=== PATIENT | male | born 1965 | race Caucasian/White ===

== ENCOUNTER → 2017-05-02 | Outpatient (CLI) | payer BC ==
[~2017-05-02] MED LIST: ACCUPRIL20TAB PO; ALEVE 220MG220 MG PO; ASPIRIN 32325 MG/TAB PO; ASPIRIN E.C. 8181 MG PO; BRILINTA90 MG PO; EPA FISH OIL1 SGL PO; LIPITOR 40MG TA40 MG PO; MUCINEX1200 MG PO; MULTI VITAMINS1 TAB PO; NITROSTAT0.4 MG/TAB SL; NORCO 325 MG-51 TAB PO; PROTONIX20 MG PO; TOPROL XL 50MG50 MG PO; TYLENOL 8 HR PO; VTAMINC250TA PO
== END ==
LOC: COL.CARD 07:04
DX: R07.9 Chest pain, unspecified (principal)

== ENCOUNTER → 2017-05-09 | Outpatient (CLI) | payer BC ==
[2017-05-09 05:59] VITALS: BP 137/91; PULSE 63
== END ==
LOC: COL.CARD 05:39
DX: I10 Essential (primary) hypertension (principal); R94.39 Abnormal result of other cardiovascular function study; R07.89 Other chest pain
CPT/HCPCS: A9502

== ENCOUNTER 2017-05-16 04:10 | Inpatient (IN) | payer BC ==
[~2017-05-16] VITALS: Ht 182.9 cm; Wt 97.5 kg
[2017-05-16] VITALS (675 sets, daily range): BP systolic 115–132; BP diastolic 68–94; PULSE 54–66; TEMP 9.2; O2SAT 84–100
[~2017-05-16 04:10] MED LIST changes: -ASPIRIN 32325 MG/TAB PO; -ASPIRIN E.C. 8181 MG PO; -BRILINTA90 MG PO; -EPA FISH OIL1 SGL PO; -LIPITOR 40MG TA40 MG PO; -NITROSTAT0.4 MG/TAB SL; -TOPROL XL 50MG50 MG PO
[2017-05-16 04:33] LABS: BASO # 0.1 (0.0-0.2); BASO % 0.7 % (0.0-2.0); EOS # 0.2 (0.0-0.7); EOS % 1.9 % (0-4.0); GRAN # 4.2 (1.4-6.5); GRAN % 52.1 % (42.2-75.2); HEMATOCRIT 43.7 % (42.0-52.0); HEMOGLOBIN 15.2 g/dl (13.5-18.0); LYMPH # 3.2 (1.2-3.4); LYMPH % 39.2 % (20.0-51.0); MEAN CELL VOLUME 89 fl (80.0-100.0); MEAN CORPUSCULAR HEMOGLOBIN 31 pg (27.0-31.0); MEAN CORPUSCULAR HGB CONC 35 g/dl (33.0-37.0); MEAN PLATELET VOLUME 10.1 fl (7.4-10.4); MONO # 0.5 (0.1-0.6); MONO % 5.7 % (1.7-9.3); PLATELET COUNT 223 K/mm3 (130-400); RED BLOOD COUNT 4.94 M/mm3 (4.20-5.60); REDCELL DISTRIBUTION WIDTH-CV 13.1 % (11.5-14.5)
[2017-05-16 04:35] LABS: PROTHROMBIN TIME 10.7 SECONDS (9.7-12.8)
[2017-05-16 04:38] LABS: PARTIAL THROMBOPLASTIN TIME 31.5 SECONDS (26.0-37.0)
[2017-05-16 04:40] LABS: ALANINE AMINOTRANSFERASE 48 U/L (21-72); ALBUMIN 4.2 gm/dL (3.5-5.0); ALKALINE PHOSPHATASE 67 U/L (50-136); ANION GAP 12 mmol/L (7-16); AST,SGOT 24 U/L (15-37); BILIRUBIN,TOTAL 0.6 mg/dL (0.0-1.0); BLOOD UREA NITROGEN 12 mg/dL (9-20); CARBON DIOXIDE 22 mmol/L (22-30); CHLORIDE 105 mmol/L (98-107); CREATININE, serum 0.63 mg/dL (0.66-1.25); GLUCOSE 138 mg/dL (74-106); LIPASE 52 U/L (23-300); POTASSIUM 3.7 mmol/L (3.4-5.0); SODIUM 139 mmol/L (137-145)
[2017-05-16 04:52] LABS: TROPONIN-I < 0.012 ng/mL (0.000-0.034)
[2017-05-16] MEDS ORDERED: ASPIRIN 32325 MG/TAB PO (06:30)
[2017-05-16] MEDS ORDERED: NITROSTAT0.4 MG/TAB SL (06:31)
--- NOTE | 2017-05-16 19:21 | NUR ---
Shift report given ELAINE Johnson.
--- NOTE | 2017-05-16 20:00 | NUR ---
Assessment completed pt is alert and oriented pts at bedside. Pt c/o headache and intermittent chest discomfort in middle of chest like indigestion. Pt recently received [place] for pain. Pt on Nitro drip at 20mcg or 12cc/hr. this has been increased from 10mcg per Dr. order. Pt has a right groin angioseal with gauze dressing CD&I. Pt has good capillary pedal pulse to right foot. Call light within reach encouraged pt to use for any needs. Continue to monitor closely.
--- NOTE | 2017-05-16 20:45 | NUR ---
Pt ambulated on telemetry in ICU and around IMCU with his and son. Pt tolerated well. No c/o pain at this time. Pt remains with IV Nitro and 1/2 NS at this time. and Son given contact # to ICU and this nurse received contact #. Family went home after pt back to bed for the evening. Talked to pt and family about family hx and POC also about Cardiac cath and chest pain.
[2017-05-17] VITALS (403 sets, daily range): BP systolic 109–131; BP diastolic 66–78; PULSE 63–74; TEMP 97.2–98.7; O2SAT 92–98
[2017-05-17 05:08] LABS: BASO % 0.4 % (0.0-2.0); EOS # 0.1 (0.0-0.7); EOS % 0.8 % (0-4.0); GRAN # 5.8 (1.4-6.5); GRAN % 68.5 % (42.2-75.2); HEMATOCRIT 40.2 % (42.0-52.0); HEMOGLOBIN 13.5 g/dl (13.5-18.0); LYMPH % 23.7 % (20.0-51.0); MEAN CELL VOLUME 89 fl (80.0-100.0); MEAN CORPUSCULAR HEMOGLOBIN 30 pg (27.0-31.0); MEAN CORPUSCULAR HGB CONC 34 g/dl (33.0-37.0); MEAN PLATELET VOLUME 10.2 fl (7.4-10.4); MONO # 0.5 (0.1-0.6); MONO % 6.4 % (1.7-9.3); PLATELET COUNT 177 K/mm3 (130-400); REDCELL DISTRIBUTION WIDTH-CV 13.2 % (11.5-14.5)
[2017-05-17 05:27] LABS: CALCIUM 8.8 mg/dL (8.4-10.2); CREATININE, serum 0.63 mg/dL (0.66-1.25)
[2017-05-17 05:40] LABS: TROPONIN-I 0.039 ng/mL (0.000-0.034)
--- NOTE | 2017-05-17 07:15 | NUR ---
Report received from ELAINE Johnson.
--- NOTE | 2017-05-17 08:10 | NUR ---
Patient ambulating in the hallway with .
--- NOTE | 2017-05-17 12:07 | NUR ---
First visit from the hospice case manager. No spiritual needs right now.
--- NOTE | 2017-05-17 13:45 | NUR ---
Patient transferred to [facility] via wheelchair, with all belongings, at side.
--- NOTE | 2017-05-17 14:20 | NUR ---
Pt arrived to floor via WC from ICU to room 353. Assessment completed. Pt states that he has "intermittent chest pain but overall feels better". INT to bilateral hands are patent and free of s/s of infection. Incision to right groin is soft and non-tender, dressing CDI. Pt at bedside. Pt denies any other needs at this time. Call light within reach. Will continue to monitor.
--- NOTE | 2017-05-17 19:37 | NUR ---
Pt c/o headache once throughout shift. Administered meds per orders. Report given to ELAINE Salazar. Pt denies any other needs at this time. Call light within reach.
[2017-05-18 00:56] VITALS: BP 112/67; PULSE 63; TEMP 97.9
[2017-05-18 04:25] VITALS: BP 111/70; PULSE 67; TEMP 97.5
[2017-05-18 08:07] VITALS: BP 113/82; PULSE 66; TEMP 97.5
--- NOTE | 2017-05-18 08:42 | NUR ---
Per primary nurse ELAINE Savage gave lisinopril and metoprolol. Education given to patient regarding dose and medication.
--- NOTE | 2017-05-18 09:49 | NUR ---
[facility] being [facility]. Assessment reviewed and agreed upon. Right groin dressing is soft, nontender, CDI. Pt is alert, oriented x4, independent in room, at bedside. Denied needs on last assessment. Call ligth within reach.
[2017-05-18] MEDS ORDERED: LIPITOR 40MG TA40 MG PO (10:46)
[2017-05-18] MEDS ORDERED: BRILINTA90 MG PO (10:46)
[2017-05-18] MEDS ORDERED: EPA FISH OIL1 SGL PO (10:46)
[2017-05-18] MEDS ORDERED: ASPIRIN E.C. 8181 MG PO (10:47)
[2017-05-18] MEDS ORDERED: TOPROL XL 50MG50 MG PO (11:10)
--- NOTE | 2017-05-18 11:49 | NUR ---
Follow up visit from the stonecutter hand. No spiritual needs right now.
--- NOTE | 2017-05-18 12:28 | NUR ---
Discharge instructions noted. Medications, education, appts, phlebotomist medical lab assistant discharge instructions, appts, and instructions reviewed at length with patient and his . Questions answered. Discussed site care to right groin site at length. Pt discharges at 1210.
--- NOTE | 2017-05-18 13:47 | NUR ---
Primary nurse was assisted with [phone] patient care by [employer] student Rosemary Chaves and [facility] Tashia Rodriguez RN-.
== END 2017-05-18 12:10 | disposition home or self-care (01) | DRG 246 ==
LOC: COL.ER 04:10 → ICU 05:48 → COL.ER 05:48 → ICU 05-17 12:08 → MEDICAL 05-17 12:08 → ICU 05-17 12:08 → MEDICAL 05-17 13:49
PROVIDERS: Emergency Medicine; Internal Medicine Cardiovascular Disease; ADMIT Internal Medicine
PROC: 0270356 Dilation of Coronary Artery, One Artery, Bifurcation, with Two Drug-eluting Intraluminal Devices, Percutaneous Approach (ICD-10-PCS; principal; 2017-05-16)
PROC: 027136Z Dilation of Coronary Artery, Two Arteries with Three Drug-eluting Intraluminal Devices, Percutaneous Approach (ICD-10-PCS; 2017-05-16)
PROC: B2111ZZ Fluoroscopy of Multiple Coronary Arteries using Low Osmolar Contrast (ICD-10-PCS; 2017-05-16)
DX: I21.4 Non-ST elevation (NSTEMI) myocardial infarction (principal); I10 Essential (primary) hypertension; I25.110 Atherosclerotic heart disease of native coronary artery with unstable angina pectoris; I25.82 Chronic total occlusion of coronary artery
CPT/HCPCS: 99223-AI; 99232-AI; 99239; C1725; C1760; C1769; C1874; C1887; C1894; C9600; C9601; G0378; J0583; J1644; J2250; J2270; J2405; J3010; J7030

== ENCOUNTER 2018-02-17 17:40 | Emergency (ER) | payer BC ==
[~2018-02-17] VITALS: Ht 182.9 cm; Wt 92.7 kg
[~2018-02-17 17:40] MED LIST changes: +ASPIRIN 32325 MG/TAB PO; +ASPIRIN E.C. 8181 MG PO; +BRILINTA90 MG PO; +EPA FISH OIL1 SGL PO; +LIPITOR 40MG TA40 MG PO; +NITROSTAT0.4 MG/TAB SL; +TOPROL XL 50MG50 MG PO
[2018-02-17 17:49] VITALS: TEMP 97.4
[2018-02-17 18:17] LABS: BASO % 0.2 % (0.0-2.0); EOS # 0.1 (0.0-0.7); EOS % 0.8 % (0-4.0); GRAN # 9.9 (1.4-6.5); HEMATOCRIT 44.6 % (42.0-52.0); HEMOGLOBIN 16.1 g/dl (13.5-18.0); LYMPH # 1.7 (1.2-3.4); LYMPH % 13.3 % (20.0-51.0); MEAN CELL VOLUME 88 fl (80.0-100.0); MEAN CORPUSCULAR HEMOGLOBIN 32 pg (27.0-31.0); MEAN CORPUSCULAR HGB CONC 36 g/dl (33.0-37.0); MEAN PLATELET VOLUME 9.8 fl (7.4-10.4); MONO # 0.8 (0.1-0.6); MONO % 6.2 % (1.7-9.3); PLATELET COUNT 196 K/mm3 (130-400); RED BLOOD COUNT 5.07 M/mm3 (4.20-5.60); REDCELL DISTRIBUTION WIDTH-CV 14.1 % (11.5-14.5)
[2018-02-17 18:23] LABS: ALBUMIN 4.5 gm/dL (3.5-5.0); BILIRUBIN,TOTAL 0.5 mg/dL (0.0-1.0); CALCIUM 9.6 mg/dL (8.4-10.2); CREATININE, serum 0.87 mg/dL (0.66-1.25); POTASSIUM 4.3 mmol/L (3.4-5.0); TOTAL PROTEIN 8.2 gm/dL (6.4-8.2)
[2018-02-17 18:26] LABS: COLLECTION METHOD CLEAN CATCH
[2018-02-17 18:41] LABS: MUCOUS Present /lpf; PH 5 (5-8); SQUAMOUS EPITHELIAL None Seen /hpf; URINE APPEARANCE Cloudy; URINE BACTERIA None Seen /hpf; URINE BILIRUBIN Negative (NEGATIVE); URINE BLOOD 3+ (NEGATIVE); URINE CALCIUM OXALATE CRYSTAL Present /hpf; URINE COLOR Amber; URINE GLUCOSE Negative (NEGATIVE); URINE KETONE Negative (NEGATIVE); URINE LEUKOCYTE ESTERASE Negative (NEGATIVE); URINE NITRATE Negative (NEGATIVE); URINE PROTEIN(semi-quant) 2+ (NEGATIVE); URINE RBC >50 /hpf; URINE UROBILINOGEN Negative (NEGATIVE)
[2018-02-17] MEDS ORDERED: LIVALO2 MG PO (18:54)
[2018-02-17] MEDS ORDERED: MASON NATURAL1200 MG PO (18:55)
[2018-02-17] MEDS ORDERED: VITAMIN C500 MG PO (18:55)
[2018-02-17] MEDS ORDERED: TYLENOL 8 HR PO (18:56)
[2018-02-17] MEDS ORDERED: ACCUPRIL20TAB PO (18:56)
[2018-02-17] MEDS ORDERED: PROTONIX 40MG T40 MG PO (18:56)
[2018-02-17] MEDS ORDERED: BRILINTA90 MG PO (18:57)
[2018-02-17] MEDS ORDERED: THE MEDICINE S200 M2 PO (18:57)
[2018-02-17] MEDS ORDERED: MUCINEX1200 MG PO (18:57)
[2018-02-17] MEDS ORDERED: MULTI VITAMINS1 TAB PO (18:58)
[2018-02-17 18:59] VITALS: BP 144/95; PULSE 68
[2018-02-17] MEDS ORDERED: FLOMAX 0.40.4 MG/CAP PO ×3 (19:52→20:31)
[2018-02-17] MEDS ORDERED: ZOFRAN 4MG T4 MG/TAB PO ×3 (19:54→20:31)
== END 2018-02-17 20:20 | disposition home or self-care (01) ==
LOC: COL.ER 17:40
PROVIDERS: Emergency Medicine
DX: N20.2 Calculus of kidney with calculus of ureter (principal); I25.10 Atherosclerotic heart disease of native coronary artery without angina pectoris; Z87.442 Personal history of urinary calculi; Z79.82 Long term (current) use of aspirin
CPT/HCPCS: J1170; J1885; J2405; J7030